=== PATIENT | female | born 1985 | race American Indian/Alaskan Native ===

== ENCOUNTER 2018-11-16 01:55 | Inpatient (IN) | payer OTHER, MEDICAID ==
[2018-11-16] MEDS ORDERED: PITOCin/NS 20 UNIT/1000ML DRIP 20,000 MILLIUNITS/1,000 ML BAG IV ONE (02:13)
[2018-11-16] MEDS ORDERED: PITOCin/NS 20 UNIT/1000ML DRIP 20 UNITS/1,000 ML BAG IV SCH (03:00)
--- NOTE | 2018-11-16 03:11 | History and Physical Report ---
History of Present Illness Date of examination: 11/16/18 Date of admission: 11/16/18 01:59 Chief complaint: Contractions History of present illness: Pt is a 33 year old who presents in active labor with EDC 11/13/2018. She started care in the first trimester at [facility] and has had an uncomplicated course. She is GBS positive. 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 Social history: single - Obstetrical History Expected Date of Delivery: 11/14/18 Actual Gestation: 40 Week(s) 2 Day(s) : 2 Para: 1 Number of Living Children: 1 Medications and Allergies Allergies Allergy/AdvReac Type Severity Reaction Status Date / Time No Known Allergies Allergy Verified 11/16/18 02:15 Active Meds: Active Medications Acetaminophen/Hydrocodone Bitart ([place] 5/325) 2 each PO Q6H PRN PRN Reason: Pain, Moderate (4-6) Oxytocin/Sodium Chloride (Pitocin/Ns 20 Unit/1000ml Drip) 20 units in 1,000 mls @ 125 mls/hr IV DIRECT RACHEL Review of Systems All systems: negative Genitourinary: leakage of fluid, contractions - Vital Signs Vital signs: Vital Signs Pulse BP 93 H 110/77 11/16/18 02:57 11/16/18 02:57 Temp Pulse Resp BP Pulse Ox 93 H 110/77 11/16/18 02:57 11/16/18 02:57 - Physical Exam Breasts: Cardiovascular: Regular rate, Normal S1, Normal S2 Lungs: Positive: Clear to auscultation, Normal air movement Abdomen: Positive: normal appearance, soft, normal bowel sounds. Negative: distention, tenderness Genitourinary (Female): Positive: normal external genitalia, normal perenium Vulva: both: normal Vagina: Positive: normal moisture. Negative: discharge Cervix: Negative: lesion, discharge Uterus: Positive: normal size, normal contour Adnexa: both: normal Anus/Rectum: Positive: normal perianal skin, heme negative. Negative: rectal mass, hemorrhoids Extremities: Deep Tendon Reflex Grade: Normal +2 - Obstetrical FHR: auscultation normal Cervical Dilatation: 7 Cervical Effacement Percentage: 100 station: -2 Uterine Contraction Pattern: Regular Uterine Contraction Intensity: Moderate Results All other labs normal. Assessment and Plan IUP at 40.2 weeks in active labor. Admit to L&D. Anticipate .
--- NOTE | 2018-11-16 03:20 | Procedure Note ---
OB Delivery Note - Delivery Date of Delivery: 11/16/18 Surgeon: LA TORREZ Estimated blood loss: 300cc - Vaginal Delivery presentation: vertex Delivery position: OA Intrapartum events: precipitous labor- <3hr Delivery induction: none Delivery monitor: external FHT, external uterine Route of delivery: Delivery placenta: spontaneous Delivery cord: 3 umbilical vessels Episiotomy: none Delivery laceration: none Anesthesia: none Delivery comments: Viable female delivered precipitously over intact perineum. Weight 6 pounds 15 ounces. Apgars 8,9. Placenta delivered spontaneously and intact with 3vc. No lacerations. Pt tolerated procedure well. Excellent hemostasis. - A at 1 minute: 8 at 5 minutes: 9 Infant Gender: Female
[2018-11-16] MEDS: NORCO 5/325 PO PRN ×2 (04:13→15:45)
[2018-11-16] MEDS ORDERED: LACTATED RINGERS 1,000 ML ONE (04:27)
[2018-11-16 04:35] LABS: Hematocrit 33.9 % (30.3-42.9); Hemoglobin 11.3 gm/dl (10.1-14.3); Mean Corpuscular HGB Conc 34 % (30-34); Mean Corpuscular Volume 88 fl (79-97); Platelet Count 145 K/mm3 (140-440); Red Blood Count 3.85 M/mm3 (3.65-5.03); Red Cell Distribution Width 14.5 % (13.2-15.2)
[2018-11-16] MEDS ORDERED: LACTATED RINGERS 1,000 ML IV SCH (05:00)
[2018-11-16] MEDS ORDERED: SODIUM CHLORIDE FLUSH SYRINGE 10 ML IV PRN (06:03)
[2018-11-16] MEDS ORDERED: DULCOLAX PR PRN (06:03)
[2018-11-16] MEDS ORDERED: PHENERGAN PO PRN (06:03)
[2018-11-16] MEDS ORDERED: ZOFRAN IV PRN (06:03)
[2018-11-16] MEDS ORDERED: PHENERGAN PR PRN (06:03)
[2018-11-16] MEDS ORDERED: LANSINOH TP PRN (06:03)
[2018-11-16] MEDS ORDERED: MILK OF MAGNESIA PO PRN (06:03)
[2018-11-16] MEDS ORDERED: BENADRYL PO PRN (06:03)
[2018-11-16] MEDS ORDERED: TUCKS PAD TP PRN (06:03)
[2018-11-16] MEDS ORDERED: TYLENOL PO PRN (06:03)
[2018-11-16] MEDS: COLACE PO SCH (09:42)
[2018-11-16] MEDS: PRENATAL VITAMIN PO SCH (09:42)
[2018-11-16] MEDS: IBUPROFEN PO SCH ×2 (11:38→18:02)
[2018-11-16 21:36] LABS: Hematocrit 33.4 % (30.3-42.9); Hemoglobin 11.3 gm/dl (10.1-14.3)
[2018-11-17] MEDS: IBUPROFEN PO SCH ×6 (00:22→19:35)
[2018-11-17] MEDS: COLACE PO SCH ×2 (00:22→09:59)
[2018-11-17] MEDS ORDERED: BOOSTRIX IM ONE (06:00)
[2018-11-17] MEDS: PRENATAL VITAMIN PO SCH (09:59)
--- NOTE | 2018-11-17 10:06 | Progress Note ---
Subjective - Subjective Date of service: 11/17/18 Interval history: Pt is a 33 year old who presents in active labor with EDC 11/13/2018. She started care in the first trimester at [facility] and has had an uncomplicated course. She is GBS positive. Patient reports: appetite normal, voiding normally, ambulating normally : doing well Objective - Vital Signs Latest vital signs: Vital Signs Temp Pulse Resp BP BP Pulse Ox 11/17/18 07:29 97.8 F 77 18 107/62 97 11/17/18 00:08 98.2 F 74 20 107/52 99 11/16/18 15:50 98 F 65 20 106/43 11/16/18 12:05 97.8 F 67 20 107/51 Intake and Output 11/16/18 11/17/18 11/17/18 22:59 06:59 14:59 Intake Total 600 240 Output Total 800 Balance -200 240 Intake: Oral 600 240 Output: Urine 800 Void 800 Other: Total, Intake Amount 360 240 Total, Output Amount 800 # Voids Void 1 1
--- NOTE | 2018-11-17 10:07 | Discharge Summary ---
Providers - Providers Date of Admission: 11/16/18 01:59 Date of discharge: 11/17/18 Attending physician: LA TORREZ Primary care physician: LA TORREZ Hospitalization Reason for admission: active labor Delivery: Laceration: none Other procedures: none complications: none Discharge diagnosis: IUP at term delivered [place] baby: female Hospital course: unremarkable Condition at discharge: Good Disposition: DC-01 TO HOME OR SELFCARE Plan - Discharge Medications Prescriptions: Ibuprofen [Motrin] 600 mg PO Q6H PRN #30 tablet PRN Reason: Pain HYDROcodone/APAP 5-325 [[place] 5/325] 1 each PO Q6HR PRN #16 tablet PRN Reason: Pain - Provider Discharge Summary Activity: routine, no sex for 6 weeks, no heavy lifting 4 weeks, no strenuous exercise Diet: routine Instructions: routine Additional instructions: [] Smoking cessation referral if applicable(refer to patient education folder for contact #) [] Refer to [facility] Booklet Call your doctor immediately for: * Fever > 100.5 * Heavy vaginal bleeding ( >1 pad per hour) * Severe persistent headache * Shortness of breath * Reddened, hot, painful area to leg or breast * Drainage or odor from incision. * Keep incision clean and dry at all times and follow doctor's instructions regarding bathing/showering - Follow up plan Follow up: LA TORREZ MD [Primary Care Provider] - 6 Weeks
[2018-11-18] MEDS: PRENATAL VITAMIN PO SCH (10:21)
[2018-11-18] MEDS: COLACE PO SCH (10:22)
[2018-11-18] MEDS: IBUPROFEN PO SCH (10:22)
[2018-11-18 12:22] VITALS: BP 107/41
== END 2018-11-18 13:05 | disposition home or self-care (01) | DRG 807 ==
LOC: TRG 01:55 → LD 01:59 → OB 05:59
PROVIDERS: ADMIT Obstetrics & Gynecology; ATTEND Obstetrics & Gynecology
PROC: 10E0XZZ Delivery of Products of Conception, External Approach (ICD-10-PCS; principal; 2018-11-16)
PROC: 3E0234Z Introduction of Serum, Toxoid and Vaccine into Muscle, Percutaneous Approach (ICD-10-PCS; 2018-11-17)
DX: O99.824 Streptococcus B carrier state complicating childbirth (principal); Z37.0 Single live birth; O62.3 Precipitate labor; Z3A.40 40 weeks gestation of pregnancy; Z23 Encounter for immunization
CPT/HCPCS: 36415; 85014; 85018; 85027; 86850; 86900; 86901; 90715; G0378; A6250; J2590; J7120

== ENCOUNTER 2020-12-10 05:01 | Inpatient (IN) | payer MEDICAID, OTHER ==
--- NOTE | 2020-12-10 05:17 | History and Physical Report ---
History of Present Illness Date of examination: 12/10/20 (Home delivery. ) Date of admission: 12/10/20 05:01 Chief complaint: Home delivery. History of present illness: Pt is a 35 y.o. .3 wks by EDC given of 12/14/20. She was receiving care at [facility]. States her contractions started yesterday and became more intense. Per patient SROM at time of delivery and delivered a viable female at home. Denies medical and surgical history. Denies drug and alcohol use. X2 both with no complications. States no complications this . Past History Past Medical History: no pertinent history Past Surgical History: no surgical history Family/Genetic History: none Social history: no significant social history - Obstetrical History Expected Date of Delivery: 12/14/20 Actual Gestation: 39 Week(s) 3 Day(s) : 3 Para: 2 Hx # Term Pregnancies: 2 Number of Pregnancies: 0 Spontaneous Abortions: 0 Induced : 0 Number of Living Children: 2 Medications and Allergies Allergies Allergy/AdvReac Type Severity Reaction Status Date / Time No Known Allergies Allergy Verified 11/16/18 02:15 Home Medications Medication Instructions Recorded Confirmed Last Taken Type HYDROcodone/APAP 5-325 [[place] 1 each PO Q6HR PRN #16 tablet 11/16/18 Unknown Rx 5/325] Ibuprofen [Motrin] 600 mg PO Q6H PRN #30 tablet 11/16/18 Unknown Rx Review of Systems All systems: negative - Vital Signs Vital signs: Vital Signs Pulse BP 71 113/64 12/10/20 05:04 12/10/20 05:04 Temp Pulse Resp BP Pulse Ox 97.9 F 71 12 113/64 12/10/20 05:06 12/10/20 05:04 12/10/20 05:06 12/10/20 05:06 - Physical Exam Breasts: Positive: deferred Cardiovascular: Regular rate Lungs: Positive: Normal air movement Abdomen: Positive: normal appearance, soft Genitourinary (Female): Positive: normal external genitalia, normal perenium Vulva: both: normal Uterus: Positive: normal size, other (Firm. Minimal bleeding noted. ) Extremities: Positive: normal Deep Tendon Reflex Grade: Normal +2 Results Result Diagrams: 12/10/20 05:15 All other labs normal. GBS UNKNOWN labs drawn on admission. Assessment and Plan A: 35 y.o. s/p of a viable female infant @ 39.3 wks @ home around 0430am. - Patient Problems (1) Spontaneous vaginal delivery Onset Date: ~12/10/20 Current Visit: Yes Status: Acute Plan to address problem: Admit to labor and delivery. Drawn labs. UDS ordered. Initiate IV. IV Pitocin to be given.
[2020-12-10] MEDS ORDERED: diphenhydrAMINE 25 MG CAP PO PRN (05:30)
[2020-12-10] MEDS ORDERED: oxyCODONE /ACETAMINOPHEN 5-325MG TAB PO PRN (05:30)
[2020-12-10] MEDS ORDERED: ACETAMINOPHEN 325 MG TAB PO PRN (05:30)
[2020-12-10] MEDS ORDERED: WITCH HAZEL/ GLYCERIN PAD TP PRN (05:30)
[2020-12-10] MEDS ORDERED: PROMETHAZINE 25 MG TAB PO PRN (05:30)
[2020-12-10] MEDS ORDERED: ONDANSETRON 4 MG/2 ML INJ IV PRN (05:30)
[2020-12-10] MEDS ORDERED: LANOLIN/ZINC/DIMETHICONE (LANSINOH) 7 GM TP PRN ×2 (05:30)
[2020-12-10] MEDS ORDERED: PROMETHAZINE 25 MG RECT SUPP PR PRN (05:30)
[2020-12-10] MEDS ORDERED: MAGNESIUM HYDROXIDE (MOM) ORAL LIQD UDC PO PRN (05:30)
[2020-12-10] MEDS ORDERED: BENZOCAINE/MENTHOL 20/0.5% TOP SPRAY 56 GM TP PRN (05:30)
[2020-12-10] MEDS: IBUPROFEN 600 MG TAB PO SCH ×3 (05:55→22:20)
[2020-12-10] MEDS ORDERED: OXYTOCIN DRIP 30 UNITS/500 ML BAG IV SCH (06:00)
[2020-12-10 06:12] LABS: Basophils % (Auto) 0.6 % (0.0-1.8); Eosinophils % (Auto) 0.2 % (0.0-4.3); Hematocrit 29.7 % (30.3-42.9); Lymphocytes # (Auto) 0.8 K/mm3 (1.2-5.4); Lymphocytes % (Auto) 16.4 % (13.4-35.0); Mean Corpuscular HGB Conc 34 % (30-34); Mean Corpuscular Volume 85 fl (79-97); Monocytes # (Auto) 0.4 K/mm3 (0.0-0.8); Monocytes % (Auto) 7.3 % (0.0-7.3); Platelet Count 108 K/mm3 (140-440); Red Blood Count 3.48 M/mm3 (3.65-5.03); Red Cell Distribution Width 14.5 % (13.2-15.2)
[2020-12-10 06:34] LABS: Hepatitis C Virus Antibody Non-Reactive (NonReactive)
--- NOTE | 2020-12-10 07:59 | Procedure Note ---
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 Per EMS staff placenta and infant already delivered upon their arrival. SROM per patient @ delivery. Placenta intact, looks complete, 3 vessels noted. Perineum and vaginal inspected, no lacerations noted. Apgars unknown. Infant weight 7-3. Mother and infant in stable condition and in care of RN. - A Infant Gender: Female (Weight 7-3.)
[2020-12-10] MEDS: PRENATAL VIT27-FE FUMARATE-FOLIC ACID VIT TAB PO SCH (09:47)
[2020-12-10] MEDS: DOCUSATE SODIUM 100 MG CAP PO SCH ×2 (09:47→22:20)
--- NOTE | 2020-12-10 10:27 | Progress Note ---
Assessment and Plan Pt denies all complaints at this time. Reports ambulating, voiding, and eating without difficulty. VSS, fundus firm with small to moderate lochia; support given and POC d/w pt. Precautions reviewed. Pt verbalizes understanding. Pt reports desires for BTL for PP BC with OBGYN that provided her care. All questions and concerns addressed. - Patient Problems (1) Spontaneous vaginal delivery Onset Date: ~12/10/20 Current Visit: Yes Status: Acute Subjective - Subjective Date of service: 12/10/20 Principal diagnosis: PP day #0, delivered @home Patient reports: appetite normal, voiding normally, pain well controlled, ambulating normally, no dizzy ambulation, no appetite poor, no pain poorly controlled, no nauseated : doing well Objective - Vital Signs Latest vital signs: Vital Signs Temp Pulse Resp BP BP Pulse Ox 12/10/20 09:48 20 12/10/20 08:43 97.7 F 77 16 115/51 99 12/10/20 06:35 98.1 F 78 12 118/77 100 12/10/20 06:20 76 97 12/10/20 06:15 80 100 12/10/20 06:10 70 100 12/10/20 06:05 79 98 12/10/20 06:00 64 99 12/10/20 05:55 77 99 12/10/20 05:53 75 133/72 12/10/20 05:50 69 99 12/10/20 05:45 68 99 12/10/20 05:40 72 100 12/10/20 05:06 97.9 F 12 113/64 12/10/20 05:04 71 113/64 Intake and Output 12/09/20 12/10/20 12/10/20 23:59 07:59 15:59 Output Total 800 Balance -800 Output: Urine 800 Void 800 Other: Total, Output Amount 800 Weight 170 lb Patient Weight 12/10/20 23:59 Weight 170 lb - Exam Breasts: Present: normal Cardiovascular: Present: Regular rate Lungs: Present: Clear to auscultation, Normal air movement Abdomen: Present: normal appearance, soft Vulva: both: normal Uterus: Present: normal, firm, fundal height below umbilicus Extremities: Present: normal - Labs Labs: Abnormal lab results 12/10/20 Range/Units 05:15 RBC 3.48 L (3.65-5.03) M/mm3 Hgb 10.0 L (10.1-14.3) gm/dl Hct 29.7 L (30.3-42.9) % Plt Count 108 L (140-440) K/mm3 Lymph # (Auto) 0.8 L (1.2-5.4) K/mm3 Seg Neutrophils % 75.5 H (40.0-70.0) %
[2020-12-10 10:56] LABS: Bilirubin,Urine NEG (Negative); Blood,Urine LG (Negative); Color,Urine Red (Yellow); Urobilinogen,Urine < 2.0 mg/dL (<2.0)
[2020-12-10 10:57] LABS: Protein,Urine >500 mg/dL (Negative); RBC,Urine > 182.0 /HPF (0.0-6.0)
[2020-12-10 10:58] LABS: Amphetamine Screen,Urine Negative; Benzodiazepines Screen,Urine Negative; Cocaine Screen,Urine Negative; Methadone Screen,Urine Negative; Opiate Screen,Urine Negative
[2020-12-10 11:53] LABS: Cannabinoid Screen,Urine Positive
[2020-12-10 13:46] LABS: Hepatitis C Virus Antibody Non-Reactive (NonReactive)
[2020-12-11] MEDS: IBUPROFEN 600 MG TAB PO SCH (06:00)
[2020-12-11] MEDS ORDERED: TETANUS,DIPH,PERTUSS(ACELL) VACCINE 0.5 ML SYRINGE IM ONE (06:00)
--- NOTE | 2020-12-11 06:19 | Discharge Summary ---
Providers - Providers Date of Admission: 12/10/20 05:01 Date of discharge: 12/11/20 (pt desires d/c Will return to her OB for PP Care) Attending physician: RAUL WIGGINS 12/10/20 12:47 Consult to Case Management [CONS] Routine Services Needed at Discharge: Research Director Notified:: [phone] Phone number called:: [phone] Additional Physician Instructions: mom positive for thc Primary care physician: RAUL WIGGINS Hospitalization Reason for admission: other (delivered at home) Delivery: Episiotomy: none Laceration: none Incision: normal Other procedures: none complications: none Discharge diagnosis: IUP at term delivered [place] baby: female Hospital course: pt presented to L&D via EMS after delivery at home Covid+ Pt awake no c/o voiced. VSS FF below umb Lochia small Perineum intact. H&H ordered for now. No s/sx of anemia. Doing well s/p vag del @ home. P: d/c today with instructions. Pt desires to f/u with her OB provider. Covid precautions given for pt and her family. Condition at discharge: Good Disposition: 01 HOME / SELF CARE / HOMELESS - Discharge Diagnoses (1) Spontaneous vaginal delivery Status: Acute Comment: Call provider and f/u in 4-6 weeks Plan - Provider Discharge Summary Activity: routine, no sex for 6 weeks, no heavy lifting 4 weeks, no strenuous exercise Diet: routine Instructions: routine Additional instructions: [] Smoking cessation referral if applicable(refer to patient education folder for contact #) [] Refer to [facility]'s [facility] Booklet Call your doctor immediately for: * Fever > 100.5 * Heavy vaginal bleeding ( >1 pad per hour) * Severe persistent headache * Shortness of breath * Reddened, hot, painful area to leg or breast * Drainage or odor from incision. * Keep incision clean and dry at all times and follow doctor's instructions regarding bathing/showering - Follow up plan Follow up: RAUL WIGGINS MD [Primary Care Provider] - 6 Weeks (Congratulations! Use Tylenol for aches, cramping, fever. Contact your primary care provider with any worsening symptoms of Covid. Call with concerns.)
[2020-12-11 07:21] LABS: Hematocrit 27.8 % (30.3-42.9); Hemoglobin 9.3 gm/dl (10.1-14.3)
[2020-12-11 09:04] VITALS: BP 112/53
[2020-12-11] MEDS: PRENATAL VIT27-FE FUMARATE-FOLIC ACID VIT TAB PO SCH (10:59)
[2020-12-11] MEDS: DOCUSATE SODIUM 100 MG CAP PO SCH (10:59)
== END 2020-12-11 13:30 | disposition home or self-care (01) | DRG 774 ==
LOC: LD 05:01 → OB 07:35
PROVIDERS: ADMIT Obstetrics & Gynecology; ATTEND Obstetrics & Gynecology
DX: Z39.0 Encounter for care and examination of mother immediately after delivery (principal); O98.52 Other viral diseases complicating childbirth; U07.1 COVID-19; Z3A.39 39 weeks gestation of pregnancy; O90.81 Anemia of the puerperium; D64.9 Anemia, unspecified
CPT/HCPCS: 36415; 80307; 81001; 85014; 85018; 85025; 86592; 86706; 86762; 86803; 86900; 86901; 87086; 87806; G0378; J2590; U0003